=== PATIENT | female | born 1990 | race Caucasian/White ===

== ENCOUNTER 2018-01-06 17:06 | Emergency (ER) | payer MEDICAID ==
[~2018-01-06] VITALS: Ht 157.5 cm; Wt 50.0 kg
[~2018-01-06 17:06] MED LIST: PRED10PA PO
[2018-01-06 17:08] VITALS: BP 136/82; PULSE 72; RESP 18; TEMP 98.5; O2SAT 100
[2018-01-06] MEDS ORDERED: NORE7TAB PO (17:28)
--- NOTE | 2018-01-06 17:57 | RADRPT ---
EXAM DATE/TIME: 01/06/2018 17:34 [facility] COMPARISON: CHEST SINGLE AP, March 07, 2016, 13:47. INDICATIONS : Chest pain and shortness of breath. MEDICAL HISTORY : MS. SURGICAL HISTORY : None. ENCOUNTER: Initial ACUITY: 1 month PAIN SCORE: 5/10 LOCATION: Bilateral chest FINDINGS: A single view of the chest demonstrates the lungs to be symmetrically aerated without evidence of mas s, infiltrate or effusion. The cardiomediastinal contours are unremarkable. Osseous structures are intact. CONCLUSION: Normal examination for a patient of this age. No significant change has occurred. Carlton Harris MD on January 06, 2018 at 17:55 Board Certified Radiologist. This report was verified electronically.
[2018-01-06 18:54] LABS: AUTOMATED NEUTROPHIL # 4.9 TH/MM3 (1.8-7.7); BASOPHIL # 0.1 TH/MM3 (0-0.2); EOSINOPHIL # 0.1 TH/MM3 (0-0.4); EOSINOPHIL % 1.3 % (0.0-4.0); HEMATOCRIT 41.3 % (35.0-46.0); HEMOGLOBIN 14.1 GM/DL (11.6-15.3); LYMPH % 18.7 % (9.0-44.0); LYMPHOCYTE # 1.3 TH/MM3 (1.0-4.8); MEAN CELL VOLUME 93.3 FL (80.0-100.0); MEAN CORPUSCULAR HEMOGLOBIN 31.8 PG (27.0-34.0); MEAN CORPUSCULAR HGB CONC 34.1 % (32.0-36.0); MEAN PLATELET VOLUME 10.8 FL (7.0-11.0); MONO % 8.5 % (0.0-8.0); MONOCYTE # 0.6 TH/MM3 (0-0.9); NEUT % 70.5 % (16.0-70.0); PLATELET COUNT 200 TH/MM3 (150-450); RED BLOOD COUNT 4.43 MIL/MM3 (4.00-5.30); RED CELL DISTRIBUTION WIDTH 12.7 % (11.6-17.2); WHITE BLOOD COUNT 6.9 TH/MM3 (4.0-11.0)
[2018-01-06 19:13] LABS: PROTHROMBIN TIME - PATIENT 10.6 SEC (9.8-11.6)
[2018-01-06 19:21] LABS: ALBUMIN 3.5 GM/DL (3.4-5.0); ALT (GPT) 20 U/L (10-53); AST (GOT) 14 U/L (15-37); BICARBONATE 23.2 MEQ/L (21.0-32.0); BLOOD UREA NITROGEN 14 MG/DL (7-18); CALCIUM 8.3 MG/DL (8.5-10.1); CHLORIDE 107 MEQ/L (98-107); CREATININE 0.55 MG/DL (0.50-1.00); GLOMERULAR FILTRATION RATE 133 ML/MIN (>89); GLUCOSE,RANDOM 80 MG/DL (74-106); MAGNESIUM 2.1 MG/DL (1.5-2.5); SODIUM (NA) 138 MEQ/L (136-145)
[2018-01-06] MEDS ORDERED: methylPREDNISolone SO SUCC INJ 500 MG in DEXTROSE 5% IN WATER 100ML INJ 100 ML IV ONE ×2 (19:30)
[2018-01-06 19:31] LABS: ALKALINE PHOSPHATASE 19 U/L (45-117); TOTAL BILIRUBIN ADULT 0.4 MG/DL (0.2-1.0); TOTAL PROTEIN 7.3 GM/DL (6.4-8.2); TROPONIN I LESS THAN 0.02 NG/ML (0.02-0.05)
--- NOTE | 2018-01-06 20:34 | PD ---
HPI Chief Complaint: Cardiac Complaint Time Seen by Provider: 17:21 Travel History International Travel<30 days: No Contact w/Intl Traveler<30days: No Traveled to known affect area: No History of Present Illness HPI 28-year-old female that presents to the ED for evaluation of chest pain and right arm pain and numbness. Per patient she has had this on and off for the past month. Per patient is been worsening specially today. Per patient she noticed today that she was in her class trying to write and she could barely do it. Per patient she has had the pain that goes to her chest from the arm. She states that the pain of the chest comes from the arm and calluses now sharp. Per patient she has no blurred vision or double vision. Per patient she has had multiple sclerosis and currently takes medication but she does not know what she is taking. Per patient she is in a double blind study with 2 different medications and she is not sure which one she is taking. Per patient she follows with Dr. Courtney. Per patient she try to follow with Dr. Courtney today but she could not get in contact with the office to get an appointment so she went to a urgent care who recommended that she comes here because she is having the MS flare. Per patient she has had MS flares like this in the past except that is different into last time she did not have the chest pain. I did review her medical records and she did had similar symptoms in 2016 but she had left- sided symptoms rather than right. She denies any trauma. No recent travel. Per patient currently her pain is 2 out of 10. She states that mostly is more numbness and tingling to her right arm. Per patient she has had episodes where the arm goes completely "". Denies any allergies to medication. No other medical issues. Per patient she is compliant with medications. PFSH Past Medical History Neurologic: Yes (MS) Influenza Vaccination: No ?: Not LMP: 12/13/17 Menopausal: No : 1 Miscarriage: 1 Past Surgical History Surgical History: No Previous Surgery Social History Alcohol Use: Yes (Occ.) Tobacco Use: Yes (5 per day) Substance Use: Yes (marijuana) Allergies-Medications (Allergen,Severity, Reaction): Coded Allergies: No Known Allergies (Verified Adverse Reaction, Unknown, 01/06/18) Reported Meds & Prescriptions Reported Meds & Active Scripts Active Reported Pirmella (Norethindrone-Ethinyl Estradiol) 0.5/0.75/1-35 Mg-Mcg Tab 1 Tab PO DAILY Review of Systems Except as stated in HPI: all other systems reviewed are Neg Physical Exam Narrative GENERAL: SKIN: Warm and dry. HEAD: Atraumatic. Normocephalic. EYES: Pupils equal and round. No scleral icterus. No injection or drainage. ENT: No nasal bleeding or discharge. Mucous membranes pink and moist. Tongue is midline. No uvula deviation NECK: Trachea midline. No JVD. CARDIOVASCULAR: Regular rate and rhythm. No murmurs, S3, S4. RESPIRATORY: No accessory muscle use. Clear to auscultation. Breath sounds equal bilaterally. GASTROINTESTINAL: Abdomen soft, non-tender, nondistended. Hepatic and splenic margins not palpable. MUSCULOSKELETAL: Extremities without clubbing, cyanosis, or edema. No obvious deformities. Full range of motion of the upper and lower extremities bilaterally. 2+ pulses bilaterally. NEUROLOGICAL: Awake and alert. No obvious cranial nerve deficits. Motor grossly within normal limits. Five out of 5 muscle strength in the arms and legs. Normal speech. PSYCHIATRIC: Appropriate mood and affect; insight and judgment normal. Data Data Last Documented VS Vital Signs Date Time Temp Pulse Resp B/P (MAP) Pulse Ox O2 Delivery O2 Flow Rate FiO2 01/06/18 17:08 98.5 72 18 136/82 (100) 100 Orders Orders Electrocardiogram (01/06/18 17:30) Complete Blood Count With Diff (01/06/18 17:30) Comprehensive Metabolic Panel (01/06/18 17:30) Ckmb (Isoenzyme) Profile (01/06/18 17:30) Troponin I (01/06/18 17:30) Prothrombin Time / Inr (Pt) (01/06/18 17:30) Act Partial Throm Time (Ptt) (01/06/18 17:30) Lipase (01/06/18 17:30) Magnesium (Mg) (01/06/18 17:30) Thyroid Stimulating Hormone (01/06/18 17:30) Chest, Single Ap (01/06/18 17:30) Iv Access Insert/Monitor (01/06/18 17:30) Ecg Monitoring (01/06/18 17:30) Oximetry (01/06/18 17:30) Us Arm Venous Doppler (01/06/18 ) Methylprednisolone So Succ Inj (Solumedr (01/06/18 19:30) Ed Discharge Order (01/06/18 21:08) Labs Laboratory Tests Test 01/06/18 18:33 White Blood Count 6.9 TH/MM3 Red Blood Count 4.43 MIL/MM3 Hemoglobin 14.1 GM/DL Hematocrit 41.3 % Mean Corpuscular Volume 93.3 FL Mean Corpuscular Hemoglobin 31.8 PG Mean Corpuscular Hemoglobin Concent 34.1 % Red Cell Distribution Width 12.7 % Platelet Count 200 TH/MM3 Mean Platelet Volume 10.8 FL Neutrophils (%) (Auto) 70.5 % Lymphocytes (%) (Auto) 18.7 % Monocytes (%) (Auto) 8.5 % Eosinophils (%) (Auto) 1.3 % Basophils (%) (Auto) 1.0 % Neutrophils # (Auto) 4.9 TH/MM3 Lymphocytes # (Auto) 1.3 TH/MM3 Monocytes # (Auto) 0.6 TH/MM3 Eosinophils # (Auto) 0.1 TH/MM3 Basophils # (Auto) 0.1 TH/MM3 CBC Comment DIFF FINAL Differential Comment Prothrombin Time 10.6 SEC Prothromb Time International Ratio 1.0 RATIO Activated Partial Thromboplast Time 25.2 SEC Blood Urea Nitrogen 14 MG/DL Creatinine 0.55 MG/DL Random Glucose 80 MG/DL Total Protein 7.3 GM/DL Albumin 3.5 GM/DL Calcium Level 8.3 MG/DL Magnesium Level 2.1 MG/DL Alkaline Phosphatase 19 U/L Aspartate Amino Transf (AST/SGOT) 14 U/L Alanine Aminotransferase (ALT/SGPT) 20 U/L Total Bilirubin 0.4 MG/DL Sodium Level 138 MEQ/L Potassium Level 3.8 MEQ/L Chloride Level 107 MEQ/L Carbon Dioxide Level 23.2 MEQ/L Anion Gap 8 MEQ/L Estimat Glomerular Filtration Rate 133 ML/MIN Total Creatine Kinase 90 U/L Troponin I LESS THAN 0.02 NG/ML Lipase 93 U/L Thyroid Stimulating Hormone 3rd Gen 0.781 uIU/ML MDM Medical Decision Making Medical Screen Exam Complete: Yes Emergency Medical Condition: Yes Medical Record Reviewed: Yes Interpretation(s) CBC & BMP Diagram 01/06/18 18:33 Total Protein 7.3, Albumin 3.5, Calcium Level 8.3 L, Magnesium Level 2.1, Alkaline Phosphatase 19 L, Aspartate Amino Transf (AST/SGOT) 14 L, Alanine Aminotransferase (ALT/SGPT) 20, Total Bilirubin 0.4 EKG shows sinus rhythm with no sign of acute ischemia or arrhythmia read by me and attending. Troponin and CK-MB negative. Last Impressions Chest X-Ray 01/06/18 1730 Signed Impressions: Service Date/Time: Saturday, January 06, 2018 17:34 - CONCLUSION: Normal examination for a patient of this age. No significant change has occurred. Carlton Harris MD Differential Diagnosis MS flare versus chest pain versus DVT versus cardiac chest pain versus MS Narrative Course 28-year-old female that presents to the ED for evaluation of chest pain and possible MS flare. Patient was properly examined and was found to have signs and symptoms which appear to be more consistent with MS flare than cardiac or other etiology. I will order blood work and imaging to make sure there is nothing else. But again appears to be less likely. Labs and imaging were essentially unremarkable. Case discussed with Dr. Ricci who is on-call for Dr. Courtney who recommends the patient started on 500 IV Solu-Medrol IV twice daily and admitted to medicine and consult to Dr. Courtney. Patient was made aware of this and prefers to go home. patient understands risks of leaving. She states that she cannot stay as she has to take care of her mother. AMA: The risks of leaving against medical advice without further evaluation treatment were discussed with the patient. These risks include cardiac dysfunction, cardiac dysrhythmia, possible heart attack, possible stroke or . The patient indicated understanding of these risks and appeared to have the capacity to make this decision. Patient was given the 1 dose of Solu-Medrol. Patient says his to come back. Follow-up with PCP. See ED if worsening symptoms. Diagnosis Primary Impression: Left against medical advice Additional Impression: Multiple sclerosis exacerbation Patient Instructions: General Instructions Disposition: 07 AGAINST MEDICAL ADVICE Condition: Stable Praveen Llanes January 06, 2018 20:34
--- NOTE | 2018-01-06 21:39 | RADRPT ---
EXAM DATE/TIME: 01/06/2018 21:11 [facility] COMPARISON: No previous studies available for comparison. INDICATIONS : Right arm pain. MEDICAL HISTORY : Multiple sclerosis. SURGICAL HISTORY : None. ENCOUNTER: Initial ACUITY: 3 weeks PAIN SCORE: 2/10 LOCATION: Right arm. FINDINGS: There is spontaneous flow documented in the brachial, basilic, cephalic, axillary, and subclavian vei ns. The vessels are compressible and augmentation response is documented. No filling defects are se en. The flow is phasic with respiration. Direction of flow in the jugular vein is caudal. CONCLUSION: No DVT right arm. Remy Sullivan MD on January 06, 2018 at 21:36 Board Certified Radiologist. This report was verified electronically.
--- NOTE | 2018-01-07 14:00 | EKG ---
Date Performed: 01/06/2018 Time Performed: 18:37:16 PTAGE: 28 years EKG: Sinus rhythm NORMAL ECG NO PREVIOUS TRACING DOCTOR: Dorina Ayoub Interpretating Date/Time 01/07/2018 13:57:43
== END 2018-01-06 22:36 | disposition left against medical advice (07) ==
LOC: NEPE 17:06
DX: G35 Multiple sclerosis (principal); R20.0 Anesthesia of skin; M79.601 Pain in right arm; F12.90 Cannabis use, unspecified, uncomplicated; Z72.0 Tobacco use; Z79.899 Other long term (current) drug therapy
CPT/HCPCS: 71045; 80053; 82550; 83690; 83735; 84443; 84484; 85025; 85610; 85730; 93005; 93971; 96374; 99285; J2930